=== PATIENT | female | born 1980 | race African-American/Black ===

== ENCOUNTER 2020-04-12 21:51 | Emergency (ER) | payer SELFPAY ==
[~2020-04-12] VITALS: Ht 162.6 cm; Wt 88.2 kg
[2020-04-12 21:57] VITALS: Ht 162.6 cm; Wt 88.2 kg
[2020-04-12 22:13] LABS: HCG URINE NEGATIVE (NEGATIVE)
[2020-04-12] MEDS ORDERED: CYCLOBENZAPRINE10 MG PO (22:19)
[2020-04-12] MEDS ORDERED: TORADOL10 MG PO (22:19)
[2020-04-12 22:49] VITALS: BP 127/82
== END 2020-04-12 22:50 | disposition home or self-care (01) ==
LOC: D.ER 21:51
PROVIDERS: Surgery
DX: M62.830 Muscle spasm of back (principal); W10.9XXA Fall (on) (from) unspecified stairs and steps, initial encounter; Y93.9 Activity, unspecified; Y92.9 Unspecified place or not applicable; M54.5 Low back pain